=== PATIENT | female | born 1970 | race Caucasian/White ===

== ENCOUNTER 2023-07-24 15:15 | Outpatient (AMB) | payer BC, SELFPAY ==
--- NOTE | 2023-07-24 15:16 | HO.NEPHOV_ITS ---
HPI HPI Comments History of Present Illness Details I had the pleasure of seeing Danis in follow-up of her hypertension. She has been on Ozempic and Jardiance. She has lost a lot of weight. She has been having more urinary infections ever since she is on Jardiance. She is tolerating RAZIA inhibitor well. She has both polycystic ovarian disease and had been on metformin which has been discontinued. She has history of renal stones. She does not have any chest pain, shortness of breath, nausea vomiting, diarrhea, fever, chills or rigors. When she was in [place] for days ago, she developed urinary frequency and hematuria. She was started on Bactrim with impr ovement. [facility] Medical History (Updated 07/24/23 @ 15:57 by Dayron Anderson MD) Polycystic ovarian syndrome IBS (irritable bowel syndrome) Hyperlipidemia GERD (gastroesophageal reflux disease) Surgical History History of kidney surgery History of cholecystectomy History of dilatation and curettage Social History (Updated 07/24/23 @ 15:28 by Suzy Gao) Alcohol intake: current Comment: occasionally Patient Tobacco Use Status: Former Tobacco user Vital Signs 07/24/23 15:17 Weight 182 lb 8 oz BP 120/78 Blood Pressure Location Lt brachial Position Sitting Pulse 84 Pulse Source Pulse Oximeter Pulse Oximetry (%) 95 Oxygen Delivery Method Room Air Physical Exam Vital Signs: Last Vital Signs Pulse 84 07/24/23 15:17 BP 120/78 07/24/23 15:17 Pulse Ox 95 07/24/23 15:17 Oxygen Delivery Method Room Air 07/24/23 15:17 Const General: comfortable and no acute distress Orientation/consciousness: patient oriented x3 HEENT Head: Yes normocephalic Mouth: Normal oral and palatal mucosa present Eyes EOM: EOMs intact bilaterally Neck Neck: Yes supple Resp Auscultation: clear to auscultation bilaterally Cardio Jugular venous distension: no JVD Rate: regular rate GI Palpation (GI): Soft to palpation Auscultation: normal bowel sounds General: Yes no CVA tenderness Back/Spine/Pelvis Back: no CVA tenderness Skin General skin exam: no rashes or lesions noted Neuro General: patient oriented x3 and moves all extremities Extrem General: Yes no pedal edema Assessment & Plan Assessment & Plan (1) Renal calculus: Code(s): N20.0 - Calculus of kidney (2) Hypertension: Code(s): I10 - Essential (primary) hypertension Qualifiers: Hypertension type: primary hypertension Qualified Code(s): I10 - Essential (primary) hypertension Plan She continues to have weight loss. She had been on CPAP for obstructive sleep apnea. Her blood pressure is well controlled now. Her renal functions are at baseline .She has lost lot of weight. She has no history of any end-organ damage. She has no proteinuria. She currently has UTI and is on Bactrim. I did not make any medication changes today. If she continues to have UTI, given history of renal calculi, I plan to do a renal ultrasound. All questions answered. Follow-up given Orders: Orders Electrolytes Today I10 - Essential (primary) hypertension, N20.0 - Calculus of kidney Protein Creatinine Ratio, Ur Today I10 - Essential (primary) hypertension, N20.0 - Calculus of kidney Creatinine Today I10 - Essential (primary) hypertension, N20.0 - Calculus of kidney Blood Urea Nitrogen Today I10 - Essential (primary) hypertension, N20.0 - Calculus of kidney Coding Level of Care Code Est Pt Level 3 (84680) Diagnoses Renal calculus N20.0 Primary hypertension I10 Hypertension type: primary hypertension Results Reviewed Nephrology Results: No Data to Display
[2023-07-24 15:17] VITALS: BP 120/78; PULSE 84; O2SAT 95
== END 2023-07-24 16:02 | disposition home or self-care (01) ==
PROVIDERS: PCP Internal Medicine; Visit Provider Internal Medicine Nephrology
DX: N20.0 Calculus of kidney (principal); I10 Essential (primary) hypertension
CPT/HCPCS: 99213

== ENCOUNTER → 2023-07-24 15:15 | Outpatient (BNVA) | payer BC, SELFPAY | PROVIDERS: PCP Internal Medicine; Visit Provider Internal Medicine Nephrology ==

== ENCOUNTER 2024-01-24 15:34 | Outpatient (AMB) | payer BC, SELFPAY ==
--- NOTE | 2024-01-24 15:38 | HO.NEPHOV ---
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 She has been on Ozempic and Jardiance. She has lost a lot of weight. She has been having more urinary infections ever since she is on Jardiance. She is tolerating RAZIA inhibitor well. She has history of renal stones. She does not have any chest pain, shortness of breath, nausea vomiting, diarrhea, fever, chills or rigors. She is off Metformin. [facility] Medical History (Updated 07/24/23 @ 15:57 by Dayron Anderson MD) Polycystic ovarian syndrome IBS (irritable bowel syndrome) Hyperlipidemia GERD (gastroesophageal reflux disease) Surgical History History of kidney surgery History of cholecystectomy History of dilatation and curettage Social History (Updated 07/24/23 @ 15:28 by Suzy Gao [facility]) Alcohol intake: current Comment: occasionally Patient Tobacco Use Status: Former Tobacco user Review of Systems Const All systems reviewed & are unremarkable except as noted in HPI and below Physical Exam Const General: comfortable and no acute distress Orientation/consciousness: patient oriented x3 HEENT Head: Yes normocephalic Mouth: Normal oral and palatal mucosa present Eyes EOM: EOMs intact bilaterally Neck Neck: Yes supple Resp Auscultation: clear to auscultation bilaterally Cardio Jugular venous distension: no JVD Rate: regular rate GI Palpation (GI): Soft to palpation Auscultation: normal bowel sounds General: Yes no CVA tenderness Back/Spine/Pelvis Back: no CVA tenderness Skin General skin exam: no rashes or lesions noted Neuro General: patient oriented x3 and moves all extremities Extrem General: Yes no pedal edema Results Reviewed Nephrology Results: No Data to Display Assessment & Plan Assessment & Plan (1) Hypertension: Code(s): I10 - Essential (primary) hypertension Category: Medical Qualifiers: Hypertension type: primary hypertension Qualified Code(s): I10 - Essential (primary) hypertension (2) Renal calculus: Code(s): N20.0 - Calculus of kidney Category: Medical Plan She continues to have weight loss. She had been on CPAP for obstructive sleep apnea. Her blood pressure is well controlled now. Her renal functions are at baseline .She has lost lot of weight. She has no history of any end-organ damage. She has no proteinuria. did not make any medication changes today. If she continues to have UTI, given history of renal calculi, I plan to do a renal ultrasound. All questions answered. Follow-up given Orders: Orders Protein Creatinine Ratio, Ur Today I10 - Essential (primary) hypertension, N20.0 - Calculus of kidney Creatinine Today I10 - Essential (primary) hypertension, N20.0 - Calculus of kidney Blood Urea Nitrogen Today I10 - Essential (primary) hypertension, N20.0 - Calculus of kidney Electrolytes Today I10 - Essential (primary) hypertension, N20.0 - Calculus of kidney Coding Level of Care Code Est Pt Level 4 (60099) Diagnoses Primary hypertension I10 Hypertension type: primary hypertension Renal calculus N20.0
[2024-01-24 15:40] VITALS: BP 126/88; PULSE 77; O2SAT 96; BMI 29.8
== END 2024-01-24 16:11 | disposition home or self-care (01) ==
PROVIDERS: PCP Internal Medicine; Visit Provider Internal Medicine Nephrology
DX: I10 Essential (primary) hypertension (principal); N20.0 Calculus of kidney
CPT/HCPCS: 99214

== ENCOUNTER → 2024-01-24 15:34 | Outpatient (BNVA) | payer BC, SELFPAY | PROVIDERS: PCP Internal Medicine; Visit Provider Internal Medicine Nephrology ==

== ENCOUNTER 2025-01-22 14:47 | Outpatient (AMB) | payer OTHER, SELFPAY ==
--- NOTE | 2025-01-22 15:13 | HO.NEPHOV ---
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 She has been on Ozempic and Jardiance. She has gained some weight back. She has multiple UTI in the last year. She has been having more urinary infections ever since she is on Jardiance. She is tolerating RAZIA inhibitor well. She has history of renal stones. She does not have any chest pain, shortness of breath, nausea vomiting, diarrhea, fever, chills or rigors. Her Diabetes is well controlled [facility] Medical History (Updated 07/24/23 @ 15:57 by Dayron Anderson MD) Polycystic ovarian syndrome IBS (irritable bowel syndrome) Hyperlipidemia GERD (gastroesophageal reflux disease) Surgical History History of kidney surgery History of cholecystectomy History of dilatation and curettage Social History Alcohol intake: current Comment: occasionally Patient Tobacco Use Status: Former Tobacco user Review of Systems Const All systems reviewed & are unremarkable except as noted in HPI and below Physical Exam Vital Signs: Last Vital Signs Pulse 77 01/22/25 15:17 BP 118/82 01/22/25 15:17 Pulse Ox 95 01/22/25 15:17 Oxygen Delivery Method Room Air 01/22/25 15:17 BMI result Body Mass Index 33.5 Const General: comfortable and no acute distress Orientation/consciousness: patient oriented x3 HEENT Head: Yes normocephalic Mouth: Normal oral and palatal mucosa present Eyes EOM: EOMs intact bilaterally Neck Neck: Yes supple Resp Auscultation: clear to auscultation bilaterally Cardio Jugular venous distension: no JVD Rate: regular rate GI Palpation (GI): Soft to palpation Auscultation: normal bowel sounds General: Yes no CVA tenderness Back/Spine/Pelvis Back: no CVA tenderness Skin General skin exam: no rashes or lesions noted Neuro General: patient oriented x3 and moves all extremities Extrem General: Yes no pedal edema Assessment & Plan Assessment & Plan (1) Hypertension: Code(s): I10 - Essential (primary) hypertension Category: Medical Qualifiers: Hypertension type: primary hypertension Qualified Code(s): I10 - Essential (primary) hypertension (2) Renal calculus: Code(s): N20.0 - Calculus of kidney Category: Medical Plan Her BP is at goal. She had been on CPAP for obstructive sleep apnea. Her renal functions are at baseline .She needs to lose weight. She has no history of any end-organ damage. She has no proteinuria. I did not make any medication changes today. If she continues to have UTI, given history of renal calculi, I plan to do a renal ultrasound. All questions answered. Follow-up given Coding Level of Care Code Est Pt Level 4 (67071) Diagnoses Primary hypertension I10 Hypertension type: primary hypertension Renal calculus N20.0
[2025-01-22 15:17] VITALS: BP 118/82; PULSE 77; O2SAT 95; BMI 33.5
== END 2025-01-22 15:49 | disposition home or self-care (01) ==
LOC: HO.HKAS 14:48
PROVIDERS: PCP Internal Medicine; Visit Provider Internal Medicine Nephrology
DX: I10 Essential (primary) hypertension (principal); N20.0 Calculus of kidney
CPT/HCPCS: 99214